=== PATIENT | female | born 1995 | race Two or more races ===

== ENCOUNTER 2023-09-02 04:26 | Emergency (ER) | payer MEDICAID, OTHER ==
[~2023-09-02] VITALS: Ht 165.1 cm; Wt 81.8 kg
[2023-09-02 05:51] LABS: INR 1.01 (0.9-1.15); Partial Thromboplastin Time 28.5 SEC (24.5-34.5); Prothrombin Time 10.6 sec (9.3-11.8)
[2023-09-02 05:54] LABS: Basophils # (auto) 0.1 10 ^3/uL (0-0.2); Basophils % (auto) 0.7 % (0.0-2.0); Eosinophils # (auto) 0.2 10 ^3/uL (0-0.8); Eosinophils % (auto) 1.5 % (0.0-7.0); Hematocrit 39.5 % (36.0-46.0); Hemoglobin 13.2 g/dL (12.2-16.2); Lymphocytes # (auto) 1.4 10 ^3/uL (0.4-5.4); Lymphocytes % (auto) 13.8 % (10.0-50.0); Mean Corpuscular Hemoglobin 27.9 pg (28.0-32.0); Mean Corpuscular Hgb Conc. 33.3 g/dL (32.0-36.0); Mean Corpuscular Volume 83.9 fL (80.0-100.0); Monocytes # (auto) 0.4 10 ^3/uL (0-1.3); Monocytes % (auto) 4.4 % (0.0-12.0); Neutrophils # (auto) 8.2 10 ^3/uL (1.6-8.6); Neutrophils % (auto) 79.6 % (37.0-80.0); Red Blood Cells 4.71 10^6/uL (4.0-5.20); Red Cell Distribution Width 13.5 % (11.8-14.3); White Blood Cell 10.3 10^3/uL (4.4-10.8)
[2023-09-02 05:55] LABS: Alanine Aminotransferase 26 U/L (7-40); Albumin 4.3 g/dL (3.2-4.8); Alkaline Phosphatase 72 U/L (46-116); Anion Gap 8 (5-15); Aspartate Aminotransferase 11 U/L (13-40); BUN/Creatinine Ratio 9.2 (10.0-20.0); Bilirubin, Total 0.4 mg/dL (0.2-1.0); Blood Urea Nitrogen 7 mg/dL (9-23); Calcium 9.6 mg/dL (8.5-10.1); Carbon Dioxide 22 mmol/L (20-30); Chloride 108 mmol/L (98-107); Glucose 124 mg/dL (74-106); Potassium 3.9 mmol/L (3.5-5.1); Sodium 138 mmol/L (136-145)
[2023-09-02 06:50] LABS: Magnesium 2.1 mg/dL (1.6-2.6)
[2023-09-02] MEDS ORDERED: METO-281 PO (13:30)
[2023-09-02] MEDS ORDERED: NAP500T PO (13:30)
[2023-09-02 13:46] VITALS: BP 115/74; PULSE 82; RESP 17; TEMP 98.7; O2SAT 100
== END 2023-09-02 13:46 | disposition home or self-care (01) ==
LOC: ER 04:26
DX: K80.20 Calculus of gallbladder without cholecystitis without obstruction (principal); R10.2 Pelvic and perineal pain; K80.50 Calculus of bile duct without cholangitis or cholecystitis without obstruction; K76.0 Fatty (change of) liver, not elsewhere classified; R07.89 Other chest pain; Z79.899 Other long term (current) drug therapy
CPT/HCPCS: 36415; 71045; 76705; 80053; 83690; 83735; 83880; 84484; 84702; 85025; 85610; 85730; 93005